=== PATIENT | male | born 1995 | race Caucasian/White ===

== ENCOUNTER 2025-01-24 13:54 | Outpatient (CLI) | payer OTHER, SELFPAY ==
--- NOTE | ~2025-01-24 | CT_ITS ---
EXAMINATION: CT sinus wo con COMPARISON: None HISTORY: J32.9 - Chronic sinusitis, unspecified TECHNIQUE: Axial images were obtained without IV contrast. Sagittal, coronal reconstruction images were obtained from the axial views. CT scan performed using dose optimization techniques including the following automated exposure control; adjustment of mA and/or kV; use of iterative reconstruction technique. Automatic exposure control was used to reduce radiation dose. Permanent radiation dose record is archived to PACS. FINDINGS: Visualized brain parenchyma, optic globes and soft tissues appear unremarkable Frontal sinuses minimal mucosal thickening. Minimal mucosal thickening in the ethmoidal air cells. The maxillary sinuses are unremarkable. The ostiomeatal complexes are patent. No significant mucosal thickening in the sphenoid sinuses. No osseous destruction or wall thickening is identified. The ostiomeatal complexes are patent. Nasal septum deviated to the right. Mild thickening of the turbinates and mild narrowing of the nasal cavities bilaterally. No osseous destruction or wall thickening is identified. IMPRESSION: No significant sinusitis. Reviewed, dictated and finalized at location P. ING OPERATOR IMPRESSION: No significant sinusitis.
--- OUTSIDE RECORDS SUMMARY | 2025-01-24 16:34 | XMS_ITS | Clinical Summary ---
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 Gender Identity Not on file Sexual Orientation Not on file Plan of Treatment Health Maintenance Due Date Last Done Comments Annual Physical 07/29/1998 Hepatitis C 07/29/2013 DTaP, Tdap and Td Vaccines ( 1 - Tdap) 07/29/2014 Hepatitis B Vaccines (1 of 3 - 19+ 3-dose series) 07/29/2014 HPV Vaccines (1 - 3-dose SCD M series) 07/29/2022 COVID-19 Vaccine ( - 2024-2 6 season) 2024 Influenza Adult (#1) 2024 Hepatitis A Vaccines Aged Out No long er eligible based on patient's age to complete this topic Meningococcal B Vaccine Aged Out No l onger eligible based on patient's age to complete this topic Meningococcal Vaccine Aged Out No juan manuel george eligible based on patient's age to complete this topic Pneumococcal Vaccine: Pediat rics (0 to 5 Years) and At-Risk Patients (6 to 49 Years) Aged Out No longer eligible b ased on patient's age to complete this topic RSV Immunizations Under 20 Months Aged Out No longer eligible based on patient's age to complete this topic
== END 2025-01-24 13:55 | disposition home or self-care (01) ==
PROVIDERS: PCP Family Medicine; Visit Provider Otolaryngology
DX: J32.9 Chronic sinusitis, unspecified (principal)
CPT/HCPCS: 70486